=== PATIENT | male | born 1970 | race Caucasian/White ===

== ENCOUNTER 2021-06-08 06:16 | Observation (INO) ==
[~2021-06-08 06:16] MED LIST: Buffered Lidocaine 1% SYRIN 1 ml INTRADERM ONE; DiMENhydriNATE IV 50 mg/ml 1 ml VIAL IV PUSH PRN; Lactated Ringers 1000 ml BAG 1,000 ML IV SCH; Naloxone 0.4 mg VIAL 0.4 mg/ml 1 ml VIAL IV PRN; Ondansetron 4 mg VIAL 2 MG/ML 2 ml VIAL IV PRN; diPHENhydraMINE IV 50 MG/ML 1 ml VIAL (BENADRYL) IV PRN
[2021-06-08] MEDS ORDERED: ceFAZolin 1 GM ADVAN 1 GM ADDV.VIAL IVPB ONE (06:23)
[2021-06-08] MEDS ORDERED: Dexamethasone IV 4 MG/ML VIAL 1 ml VIAL ONE ×2 (06:30→07:52)
[2021-06-08] MEDS ORDERED: Bupivacaine 0.5% SDV PF 30ML VIAL ONE (06:30)
[2021-06-08] MEDS ORDERED: Midazolam 2 mg/2 ml VIAL 1 mg/ml 2 ml VIAL (2 mg) ONE ×2 (06:31→06:59)
[2021-06-08] MEDS ORDERED: Lidocaine 1% MPF 5 ML VIAL ONE (06:34)
[2021-06-08] MEDS ORDERED: Ropivacaine 5 MG/ML 20 ML VIAL 0.5% (100 MG) ONE (06:52)
[2021-06-08] MEDS ORDERED: Propofol 10 MG/ML 20 ML BTL ONE ×3 (06:59→09:54)
[2021-06-08] MEDS ORDERED: Lidocaine 2% PF 5 ML VIAL ONE (06:59)
[2021-06-08] MEDS ORDERED: fentaNYL 100 mcg/2 ml 50 MCG/ML VIAL ONE ×3 (06:59→09:33)
[2021-06-08] MEDS ORDERED: Ondansetron 4 mg VIAL 2 MG/ML 2 ml VIAL ONE (06:59)
[2021-06-08] MEDS ORDERED: Rocuronium 50 mg VIAL 10 mg/ml 5 ml VIAL (50 mg) ONE ×2 (07:20→08:32)
[2021-06-08] MEDS ORDERED: HYDROmorphone 0.5 MG/0.5 ML SYRINGE ONE ×4 (07:41→08:55)
[2021-06-08] MEDS ORDERED: Acetaminophen IV 1 GM/100ML 100 ML IV ONE (07:52)
[2021-06-08] MEDS ORDERED: EPHEDrine (Pressors) 50 MG/ML VIAL ONE (07:54)
[2021-06-08] MEDS ORDERED: Ondansetron 4 mg VIAL 2 MG/ML 2 ml VIAL IV PRN (08:26)
[2021-06-08] MEDS ORDERED: diPHENhydraMINE 25 mg TAB PO PRN (08:26)
[2021-06-08] MEDS ORDERED: Lactulose 30 ml UDC PO PRN (08:26)
[2021-06-08] MEDS ORDERED: Magnesium Hydroxide LIQ 30 ML UDC PO PRN (08:26)
[2021-06-08] MEDS ORDERED: diPHENhydraMINE IV 50 MG/ML 1 ml VIAL (BENADRYL) IV PRN (08:26)
[2021-06-08] MEDS ORDERED: Ondansetron ODT 4 mg TAB 4 MG TAB PO PRN (08:26)
[2021-06-08] MEDS ORDERED: ceFAZolin 1 GM ADVAN 1 GM in NS 0.9% 50 ML 50 ML IVPB SCH ×2 (09:00→16:00)
[2021-06-08] MEDS ORDERED: Vitamin THERAPEUTIC TAB PO SCH (09:00)
[2021-06-08] MEDS ORDERED: Lactated Ringers 1000 ml BAG 1,000 ML IV SCH (09:00)
[2021-06-08] MEDS ORDERED: Magnesium Hydroxide LIQ 30 ML UDC PO SCH (09:00)
[2021-06-08 17:05] VITALS: BP 148/82
== END 2021-06-08 17:10 | disposition home or self-care (01) ==
LOC: OR 06:16 → SSU 06:16
PROVIDERS: ADMIT Orthopaedic Surgery Adult Reconstructive Orthopaedic Surgery; ATTEND Orthopaedic Surgery Adult Reconstructive Orthopaedic Surgery